=== PATIENT | female | born 1960 | race Caucasian/White ===

== ENCOUNTER 2018-12-06 14:39 | Outpatient (REF) | payer BC, SELFPAY ==
[2018-12-06 21:06] LABS: Calculated LDL 157 mg/dL; Cholesterol 262 mg/dL (50-200); HDL Cholesterol 80 mg/dL (40-60); Triglyceride 128 mg/dL (30-150)
[2018-12-08 09:56] LABS: Hepatitis C Ab w Rflx HCV PCR Negative (NEGAT)
== END 2018-12-06 14:59 ==
LOC: NCHCN 14:39
PROVIDERS: PCP Nurse Practitioner; Visit Provider Nurse Practitioner Family
DX: Z00.00 Encounter for general adult medical examination without abnormal findings (principal); R51 Headache; J45.20 Mild intermittent asthma, uncomplicated; M54.5 Low back pain; M19.90 Unspecified osteoarthritis, unspecified site; F32.9 Major depressive disorder, single episode, unspecified; J30.9 Allergic rhinitis, unspecified
CPT/HCPCS: 80061; 83721; 86803

== ENCOUNTER 2018-12-22 00:37 | Outpatient (CLI) | payer BC, SELFPAY ==
--- NOTE | 2018-12-22 12:54 | DI.MAMMO_ITS ---
SYMPTOM/DIAGNOSIS: SCREENING, Z12.39 MAMMOGRAMS: Mammograms were interpreted according to the usual protocol including computer analysis with CAD system, tomosynthesis and C view imaging. Comparison is made with prior examinations. Breast density, Category B. No suspicious masses or microcalcifications are seen. There is no definite evidence of malignancy. IMPRESSION: Negative mammogram. Routine screening is recommended. Category 1. MQSA ASSESSMENT OF FINDINGS: Negative. Category 1. Patient will receive a letter notifying them of these results. BI-RADS category B. There are scattered areas of fibroglandular density.
== END 2018-12-22 00:57 ==
PROVIDERS: PCP Nurse Practitioner; Visit Provider Nurse Practitioner Family
DX: Z12.31 Encounter for screening mammogram for malignant neoplasm of breast (principal)
CPT/HCPCS: 77063; 77067

== ENCOUNTER 2019-11-17 10:28 | Outpatient (CLI) | payer BC, SELFPAY ==
[2019-11-21 23:14] LABS: SARS-CoV-2 RNA Undetected (Undetected); SARS-CoV-2 Specimen Source Nasopharynx
== END 2019-11-17 10:48 ==
PROVIDERS: PCP Nurse Practitioner; Visit Provider Nurse Practitioner Family
DX: Z11.59 Encounter for screening for other viral diseases (principal)
CPT/HCPCS: U0003

== ENCOUNTER 2020-12-13 10:21 | Outpatient (REF) | payer BC, SELFPAY ==
[2020-12-13 14:40] LABS: HCT 39.3 % (36.0-46.0); HGB 13.6 g/dL (11.2-15.7); MCH 32.1 pg (27.0-33.0); MCHC 34.6 % (32.0-36.0); MCV 92.7 fL (80-95); MPV 11.2 fL (8.0-11.0); Platelet Count 115 10^3/uL (130-400); RBC 4.24 10^6/uL (3.93-5.22); RDW 12.1 % (11.7-14.6); RDW-SD 41.2 fL; WBC 4.41 10^3/uL (4.4-10.8)
[2020-12-14 12:46] LABS: COVID-19 RT-PCR UVMMC Result Negative (Negative)
[2020-12-16 12:50] LABS: Lyme Ab w Rflx to Lyme Confirm Equivocal (Negative)
[2020-12-16 13:37] LABS: Lyme IgG Ab Negative (Negative); Lyme IgM Ab Positive (Negative)
[2020-12-17 00:45] LABS: Anaplasma phagocytophilum Negative (Negative); B. miyamotoi PCR Negative (Negative); Babesia divergens/MO-1 Negative (Negative); Babesia duncani Negative (Negative); Babesia microti Negative (Negative); Ehrlichia chaffeensis Negative (Negative); Ehrlichia ewingii/canis Negative (Negative); Ehrlichia muris eauclairensis Negative (Negative)
== END 2020-12-13 10:22 | disposition home or self-care (01) ==
LOC: NCHCN 10:21
PROVIDERS: PCP Nurse Practitioner; Visit Provider Nurse Practitioner Family
DX: B34.9 Viral infection, unspecified (principal); Z20.822 Contact with and (suspected) exposure to COVID-19
CPT/HCPCS: 85027; 86617; 87798; U0003; 86618

== ENCOUNTER 2020-12-14 06:58 | Inpatient (IN) | payer BC, SELFPAY ==
[2020-12-14] VITALS (55 sets, daily range): BP systolic 99–128; BP diastolic 52–74; PULSE 69–101; RESP 15–23; TEMP 36.2–38; O2SAT 95–100
--- NOTE | 2020-12-14 07:04 | ED.GENADUL_ITS ---
Discharge Plan Disposition Patient Disposition: [facility] INPATIENT Condition: Stable Discharge Details Clinical Impression: Non-ST elevation [place] (NSTEMI), Transaminitis, Malaise, Abdominal pain, Mass of right ovary Primary Care Provider: Esther Ambriz ED Provider: Jefe Edwards Home Meds and New Rx's Prescriptions: No Action multivitamin Tablet 1 tab PO QAM RF: 0 ondansetron HCl [Zofran] 4 mg tablet 4 mg PO TID PRNRF: 0 sertraline 100 mg tablet 100 mg PO DAILY RF: 0 Medical Decision Making <Aramis Laboy MD - Last Filed: 12/14/20 07:29> Patient presenting with 5-day history of headache, vomiting, malaise, low-grade fevers. She is fully vaccinated. She has already had 1 - Covid test. She has a repeat Covid as well as tick panel pending. Not tolerating fluids and Zofran prescribed yesterday not helping. Abdomen is benign. Will establish IV give fluids as well as Compazine. She had CBC drawn yesterday but no other labs so we will do abdominal labs including lipase. <Jefe Edwards DO - Last Filed: 12/14/20 11:47> Case was signed out to me by my colleague Dr. Aramis Laboy. Please refer to his HPI, physical exam assessment and plan. At time of signout we are pending laboratory work-up. Labs returned and the patient's troponin is noted to be elevated. EKG was immediately ordered, EKG shows no evidence of STEMI. There is an inverted T wave in lead III and aVF. Laboratory work-up otherwise shows a low sodium, mild transaminitis, lipase normal. No white count, platelets are slightly low at 122, lymphocyte count is low. Bedside portable echo was performed and shows no evidence of pericardial effusion, no evidence of significant cardiac dysfunction, or overt signs of severe heart failure. Patient has been under tremendous amount of stress however symptoms at this time appear unlikely to be Takotsubo's cardiomyopathy. However in conjunction with the transaminitis I do feel that potential mild myocarditis from a tickborne illness is a potential component/cause. The inverted T waves in lead III and aVF, and her prolonged symptoms, on repeat exam she does have mild tenderness in the left lower quadrant. We will get a CTA/PE study of the chest as well as CT abdomen for evaluation of diverticulitis. We will continue to monitor closely and reassess. Tick studies were performed on an outpatient basis already and those results are not back yet. Be trusted that 1 11:[address] PE study negative for acute process, CT abdomen shows moderate free fluid in the pelvis, diffuse mesenteric edema, however repeat exam does not show clinical evidence at this time of an acute ischemic gut clinically. Abdominal tenderness is notably resolved. There is also a 3.2 cm right adnexal mass, which could be a pedunculated fibroid or an ovarian lesion. No ultrasound available at this time. This is the opposite side to where the pains initially was. Patient remained stable. Repeat exam shows no evidence of meningeal signs, patient demonstrates no clinical evidence of meningitis at this time. No neck tenderness or stiffness. Headache resolved at this time. We did contact [facility] and I discussed the case with . At this time no beds are available at [facility], however after discussion of the case, labs, imaging, and EKG findings, it is felt that this is more likely to be a viral or tickborne etiology rather than ischemic etiology. Aspirin given. Recommend holding on heparin unless troponin notably increases or elevates cardiology recommends.. echo when available, as well as formal ultrasound of the ovaries for further assessment. Discussed the case with the hospitalist Dr. Ruiz, he agrees with the assessment and plan. We will start doxycycline at this time anticipating tickborne etiology. I will place bridging orders on his behalf. I have ex tensively reviewed the treatment plan with the patient. I have addressed all patient concerns at this time. I have also discussed the plan with the admitting physician and they agree with the current assessment and plan and have agreed to assume responsibility for the patient. All parties demonstrate verbal understanding and agreement with our assessment and plan at this time. The documentation in this chart was dictated using [employer] dictation software. Please excuse any dictation errors. EKG 8: 24 Rate 67, sinus rhythm, no significant ST elevation or depression. Inverted T waves noted in lead III and aVF. No large Q waves. No evidence of STEMI. No prior EKG for comparison. FINDINGS: Pulmonary arteries: Normal. No pulmonary emboli. Aorta: Unremarkable. No aortic aneurysm. No aortic dissection. Lungs: Dependent atelectasis. Pleural spaces: Unremarkable. No pneumothorax. No pleural effusion. Heart: Unremarkable. No cardiomegaly. No pericardial effusion. Lymph nodes: Unremarkable. No enlarged lymph nodes. Bones/joints: Minimal degenerative arthritis in the thoracic spine. Soft tissues: Unremarkable. IMPRESSION: No acute findings. FINDINGS: Aorta: No aortic aneurysm. No aortic dissection. Celiac trunk and mesenteric arteries: No occlusion or significant stenosis. Renal arteries: No occlusion or significant stenosis. Liver: Mild periportal edema. Gallbladder and bile ducts: Normal. No calcified stones. No ductal dilation. Pancreas: Normal. No ductal dilation. Spleen: Normal. No splenomegaly. Adrenals: Normal. No mass. Kidneys and ureters: Normal. No hydronephrosis. Stomach and bowel: Unremarkable. No obstruction. No mucosal thickening. Lymph nodes: Unremarkable. No enlarged lymph nodes. Intraperitoneal space: Moderate amount of free fluid in the pelvis. Mild diffuse mesenteric edema. Reproductive: Solid-appearing peripherally calcified rounded 3.2 cm right adnexal mass best seen on axial series 13, image 68. This could be an ovarian lesion or a pedunculated fibroid. Ultrasound recommended. Bones/joints: Degenerative arthritis in the spine and pelvis. Old fracture right sacrum and left superior and inferior pubic rami. Soft tissues: Unremarkable. Other findings: Images are degraded by motion. IMPRESSION: 1. Moderate amount of free fluid in the pelvis and diffuse mesenteric edema. 2. 3.2 cm right adnexal mass could be a pedunculated fibroid or an ovarian l esion. Ultrasound recommended. 3. Mild periportal edema Thank you for allowing us to participate in the care of your patient. Dictated and Authenticated by: Fela Loco MD 12/14/2020 10:39 AM Eastern Time ([place] & [place]) HPI <Aramis Laboy MD - Last Filed: 12/14/20 07:29> General Mode of arrival: ambulatory . Date/Time Provider Initiated Documentation: 12/14/20 07:04 . Limitations to Documentation: no limitations . Information obtained by: patient and RN notes reviewed . HPI Narrative: Patient presents to the ED with persistent nausea and vomiting. Patient started with symptoms 5 days ago. She has headache, vomiting, intermittent low-grade fevers, abdominal discomfort, fatigue. She had one Covid test done this week which is negative. She was seen by primary care yesterday and had a repeat Covid test as well as check panel sent. She was prescribed Zofran but has vomited as soon as she takes it. Continues to have dry heaves. She reports decreased urine output. She denies rash or joint pain. She denies diarrhea. She has upper abdominal discomfort and had some pressure in the epigastric region but denies having chest pain, shortness of breath. Presents to ED due to persistent vomiting and inability to keep anything down. Related Data Home Medications Medication Instructions Recorded Confirmed multivitamin 1 tab PO QAM 12/14/20 12/14/20 ondansetron HCl [Zofran] 4 mg PO TID PRN 12/14/20 12/14/20 sertraline 100 mg PO DAILY 12/14/20 12/14/20 Allergies Allergy/AdvReac Type Severity Reaction Status Date / Time scopolamine AdvReac Skin Rash Unverified 12/14/20 07:11 Review of Systems <Aramis Laboy MD - Last Filed: 12/14/20 07:29> Narrative: 02/06 Review of Systems completed and is negative except as stated above in HPI (Systems reviewed: Const, Eyes, ENT, Resp, CV, GI, , MSK, Skin, Neuro) PFSH <Aramis Laboy MD - Last Filed: 12/14/20 07:29> Medical History No significant past medical history Surgical History No significant past surgical history Social History Smoking/Tobacco Use Status: Never Smoking risk assessment performed?: Yes Alcohol Intake: current Alcohol Intake frequency: 0-2 drinks per day Alcohol type: beer Drug use: Never Substance use type: does not use Exam <Aramis Laboy MD - Last Filed: 12/14/20 07:29> Narrative Exam Narrative: Const: WDWN female in NAD. HEENT: NC/AT. Normal facial exam. Eyes: Normal conjunctiva and sclera. Neck: Supple. Trachea midline. Lungs: Normal respiratory effort. Lungs are clear. Cor: RRR without murmur/gallop. Good radial pulses. GI: Soft. NT/ND. No guarding or rebound. Neuro: A+O x 3. Normal speech, mentation, gait. Cranial nerves II - XII grossly intact. No gross motor or sensory deficit. Ext: No C/C/E. Skin: Warm and dry without rash. Sign Out <Aramis Laboy MD - Last Filed: 12/14/20 07:29> Sign Out Data: Sign Out Comment: Patient turned over to oncoming physician Dr. Edwards. Laboratory studies pending. Reevaluate after medications and fluids. Last updated by Aramis Laboy MD at 12/14/20 07:59
[2020-12-14] MEDS: Prochlorperazine 10 MG/2 ML VIAL IVP (07:38)
[2020-12-14] MEDS: Lactated Ringers 2,000 ML 1000 ML IV (07:38)
[2020-12-14 07:54] LABS: Abs Immature Grans 0.03 10^3/uL (0.0-0.06); Absolute Basophil Count 0.01 10^3/uL (0.0-0.2); Absolute Monocyte Count 0.42 10^3/uL (0.1-0.8); Absolute Neutrophil Count 4.91 10^3/uL (1.2-6.7); Basophils % 0.2; HGB 13.4 g/dL (11.2-15.7); Immature Grans % 0.5; Lymphocytes % 6.9; MCH 32.1 pg (27.0-33.0); MCHC 35.3 % (32.0-36.0); MCV 90.9 fL (80-95); MPV 10.3 fL (8.0-11.0); Monocytes % 7.3; Neutrophils % 85.1; Nucleated RBC 0 %; Platelet Count 122 10^3/uL (130-400); RBC 4.18 10^6/uL (3.93-5.22); RDW 11.9 % (11.7-14.6); RDW-SD 39.8 fL; WBC 5.77 10^3/uL (4.4-10.8)
[2020-12-14 08:10] LABS: ALT 300 U/L (14-59); AST 148 U/L (15-37); Albumin 3.2 g/dL (3.4-5.0); Alkaline Phosphatase 288 U/L (46-116); Anion Gap 8.1 mmol/L (3-11); BUN 5 mg/dL (7-18); Bilirubin, Total 0.9 mg/dL (0.2-1.0); CO2 26.9 mmol/L (21.0-32.0); CREATININE 0.5 mg/dL (0.55-1.02); Calcium 8.3 mg/dL (8.5-10.1); Chloride 89 mmol/L (98-107); Glucose 124 mg/dL (74-106); Lipase 60 U/L (73-393); Magnesium 1.7 mg/dL (1.8-2.4); Potassium 3.6 mmol/L (3.5-5.1); Total Protein 6.7 g/dL (6.4-8.2)
[2020-12-14 08:15] LABS: Sodium 124 mmol/L (136-145)
--- NOTE | 2020-12-14 08:15 | RT.EKG_ITS ---
APPROVED REPORT Exam: Resting ECG Reason for Exam: nausea Patient Location: E HR:67 bpm ECG Measurements Heart Rate 67 AXIS [place] 141 P 63 QRSd 82 QRS 37 QT 377 T -15 QTc 398 Conclusion Sinus rhythm...normal P axis, V-rate 60- 99 Physician: Rate 67, sinus rhythm, no significant ST elevation or depression. Inverted T waves noted in lead III and aVF. No large Q waves. No evidence of STEMI. No prior EKG for comparison.
--- NOTE | 2020-12-14 09:20 | DI.CT_ITS ---
Exam(s) CT CHEST PE ABD PELVIS W EXAM: CT CHEST PE ABD PELVIS W CLINICAL HISTORY: chest pain, nstemi. TECHNIQUE: Imaging Protocol: Axial CT angiography was performed with multi-slice acquisition and m ulti-planar and/or 3D reconstructions. CONTRAST MATERIAL: Intravenous: Omnipaque 350 Contrast volume:100 ml Oral: None COMPARISON: No exams were available for comparison FINDINGS: CHEST: PULMONARY ARTERIES: There are no intra-arterial filling defects to suggest the presence of acute pulm onary emboli. LUNGS: Mild mosaic-type pattern both posterior lungs consistent with some air trapping. No air bronc hograms. No pleural effusions.. No pneumothorax MEDIASTINUM: There is no hilar nor mediastinal adenopathy. Partially visualized thyroid unremarkable CARDIAC: Heart size is normal. There is no pericardial effusion. There is no significant shift of t he interventricular septum.Caliber of the thoracic aorta is within normal limits. OSSEOUS: No significant osseous lesions.. ABDOMEN: There is some motion artifact There is no ascites in the upper abdomen but there does appear to be some mild mesenteric edema. The re is moderate amount of free fluid in the dependent aspect of the pelvis. LIVER: There are no focal hepatic lesions nor dilatation of intrahepatic ducts. Intrahepatic peripor aracely edema noted GALLBLADDER/BILIARY: No obvious gallstones. Fluid density around the gallbladder is noted but this i s probably artifact given the amount of movement here. PANCREAS: No evidence of pancreatic mass nor dilatation of the pancreatic duct. SPLEEN: Spleen is not enlarged. There are no intrasplenic lesions. Splenic and portal veins are valdes nt. ADRENALS: There are no significant adrenal masses. KIDNEYS:No cysts evident. No calculi nor hydronephrosis. No solid renal masses. ABDOMINAL AORTA: Abdominal aorta is not enlarged. LYMPH NODES: There is no retroperitoneal or para-aortic adenopathy. ABDOMINAL WALL/GI: No evidence of significant anterior abdominal wall hernia. No bowel obstruction. PELVIS: LYMPH NODES: There is no intrapelvic nor inguinal adenopathy. GI: Appendix is difficult to identify is a separate structure.No obvious swollen appendix evident.. No obvious sigmoid diverticuli. URINARY BLADDER: No calculi nor masses evident REPRODUCTIVE: There is a partially calcified density right of uterus which is either a fibroid or ova tiffanie abnormality. There is a moderate amount of fluid in the cul-de-sac and both adnexal regions. T his fluid is uniform density with no evidence of clot therein. OSSEOUS: Nonacute left pelvic fractures involving the pubic rami. Subtle sclerosis in the right nelida c bone noted advanced disc space narrowing L5-S1 level. Vacuum phenomenon seen within both this disc space and the non diminished L4-5 disc space. IMPRESSION: 1. No evidence of acute pulmonary emboli nor pulmonary infarction. 2. Mild mosaic pattern noted in both lower lung becker, probably related to air trapping. No pleural effusions nor intrathoracic adenopathy. Appropriate follow-up of this finding recommended. 3. Mesenteric edema and periportal edema. 4. Partially calcified mass in the right adnexa measuring approximately 3 x 3 millimeters. This may be uterine fibroid versus possible right ovarian pathology. Significant moderate amount of free flui d in the dependent aspect of the pelvis. Recommend follow-up ultrasound examinations. RADIATION DOSE DELIVERED: Total DLP DATA REPOSITORY: All CT scans at this facility are submitted to the National Radiology Data Registry (NRDR) Dose Index Registry (DIR) with the [employer] (ACR). RADIATION OPTIMIZATION: All CT scans at this facility use at least one of these dose optimization te chniques: automated exposure control; mA and/or kV adjustment per patient size (includes targeted exa ms where dose is matched to clinical indication); or iterative reconstruction.
[2020-12-14] MEDS: Normal Saline - Diluent 50 ML VIAL IV (10:01)
[2020-12-14] MEDS: Omnipaque 350 MG/ML 100 ML BTL IJ (10:01)
[2020-12-14] MEDS: Normal Saline Flush 10 ML SYR IVP (10:01)
[2020-12-14 10:03] LABS: Troponin I 0.12 ng/mL (<0.06)
[2020-12-14] MEDS: Aspirin 81 MG CHEW 324 MG CH (10:11)
--- NOTE | 2020-12-14 10:39 | DI.VRAD_ITS ---
PROCEDURE INFORMATION: Exam: CTA Chest With Contrast Exam date and time: 12/14/2020 9:43 AM Age: 60 years old Clinical indication: Other: Chest pain, nstemi, ; other: Vomiting, llq pain TECHNIQUE: Imaging protocol: Computed tomographic angiography of the chest with contrast. 3D rendering (Not supervised by radiologist): MIP and/or 3D reconstructed images were created by the technologist. Contrast material: OMNIPAQUE 350; Contrast volume: 100 ml; Contrast route: INTRAVENOUS (IV); COMPARISON: No relevant prior studies available. FINDINGS: Pulmonary arteries: Normal. No pulmonary emboli. Aorta: Unremarkable. No aortic aneurysm. No aortic dissection. Lungs: Dependent atelectasis. Pleural spaces: Unremarkable. No pneumothorax. No pleural effusion. Heart: Unremarkable. No cardiomegaly. No pericardial effusion. Lymph nodes: Unremarkable. No enlarged lymph nodes. Bones/joints: Minimal degenerative arthritis in the thoracic spine. Soft tissues: Unremarkable. IMPRESSION: No acute findings. PROCEDURE INFORMATION: Exam: CT Angiography Abdomen With Contrast Exam date and time: 12/14/2020 9:43 AM Age: 60 years old Clinical indication: Other: Chest pain, nstemi, ; other: Vomiting, llq pain TECHNIQUE: Imaging protocol: Computed tomographic angiography images of the abdomen with intravenous contrast material. 3D rendering (Not supervised by radiologist): MIP and/or 3D reconstructed images were created by the technologist. Contrast material: OMNIPAQUE 350; Contrast volume: 100 ml; Contrast route: INTRAVENOUS (IV); COMPARISON: No relevant prior studies available. FINDINGS: Aorta: No aortic aneurysm. No aortic dissection. Celiac trunk and mesenteric arteries: No occlusion or significant stenosis. Renal arteries: No occlusion or significant stenosis. Liver: Mild periportal edema. Gallbladder and bile ducts: Normal. No calcified stones. No ductal dilation. Pancreas: Normal. No ductal dilation. Spleen: Normal. No splenomegaly. Adrenals: Normal. No mass. Kidneys and ureters: Normal. No hydronephrosis. Stomach and bowel: Unremarkable. No obstruction. No mucosal thickening. Lymph nodes: Unremarkable. No enlarged lymph nodes. Intraperitoneal space: Moderate amount of free fluid in the pelvis. Mild diffuse mesenteric edema. Reproductive: Solid-appearing peripherally calcified rounded 3.2 cm right adnexal mass best seen on axial series 13, image 68. This could be an ovarian lesion or a pedunculated fibroid. Ultrasound recommended. Bones/joints: Degenerative arthritis in the spine and pelvis. Old fracture right sacrum and left superior and inferior pubic rami. Soft tissues: Unremarkable. Other findings: Images are degraded by motion. IMPRESSION: 1. Moderate amount of free fluid in the pelvis and diffuse mesenteric edema. 2. 3.2 cm right adnexal mass could be a pedunculated fibroid or an ovarian lesion. Ultrasound recommended. 3. Mild periportal edema Dictated and Authenticated by: Fela Loco MD. Ordering:LYNNE Mayberry MD
[2020-12-14 11:40] LABS: Source Nasal/Nares
[2020-12-14 11:54] LABS: Creatine Kinase 46 U/L (26-192)
[2020-12-14] MEDS: DOXYCYCLINE 100 MG in Normal Saline 100 ML IVPB (11:55)
[2020-12-14 12:36] LABS: COVID-19 PCR Negative (Negative)
--- NOTE | 2020-12-14 13:30 | HPE_ITS ---
Date of service: 12/14/20 Time of Service: 13:31 Assessment and Plan Assessment and plan (1) Non-ST elevation [place] (NSTEMI): Status: Acute Assessment and plan: Concerning more for myocarditis (viral or tickborne) than ischemia. Tick panel ordered. Doxycycline initiated for presumptive treatment. PRN ibuprofen for KENNEDY. Trend troponin. Echocardiogram on Wednesday. (2) Transaminitis: Status: Acute Assessment and plan: CT showed no biliary abnormalities other than periportal edema. Monitor. (3) Malaise: Status: Acute Assessment and plan: Further evidence of a likely viral or tick-born is [place]. (4) Mass of right ovary: Status: Acute Assessment and plan: US ordered. No pain in the RLQ. History of Present Illness History of Present Illness Chief Complaint: Nausea and Vomitting Narrative: This is a 60 yo female with no significant PMH. She presented to the ED with a 5 day h/o persistent N/V, KENNEDY, low-grade fevers, abd discomfort and generalized malaise/fatigue. She saw her PCP the day prior to admission and had a Covid test that was negative. She had a previous Covid test within the last week that was negative. She has noted decreased urine output ascribed to the inability to keep adequate fluids down. No diarrhea, joint pain, CP, palpitations, SOA. CBC was normal. Na low at 124, K 3.6, creatinine 0.5, Mg 1.7, normal bilirubin, AST 148, ALT 300, AP 288. Troponin 0.10> 0.12 > 0.17. Lipase 60. EKG w/o ST changes. Inverted T waves in III and aVF. CT chest/abd/pelvis. No acute chest findings. + moderate amt of free fluid in the pelvis and diffuse mesenteric edema. 3.2 right adnexal mass; described as a pedunculated fibroid vs ovarian lesion. US ordered and pending. Mild periportal edema. Cardiology, Dr Salas was spoken to by the ED physician. [place] this is likely a viral or tickborne issue rather than ischemia. Aspirin given. No heparin unless troponin notably increases. Echo and pelvic US ordered. Review of Systems All systems reviewed & are unremarkable except as noted in HPI and below PFSH Medical History No significant past medical history Surgical History No significant past surgical history Social History Smoking/Tobacco Use Status: Never Smoking risk assessment performed?: Yes Alcohol Intake: current Alcohol Intake frequency: 0-2 drinks per day Alcohol type: beer Drug use: Never Substance use type: does not use Meds Allergies and Home Medications Allergies Allergy/AdvReac Type Severity Reaction Status Date / Time scopolamine AdvReac Skin Rash Unverified 12/14/20 07:11 Home Medications Medication Instructions Recorded Confirmed Type multivitamin 1 tab PO QAM 12/14/20 12/14/20 History ondansetron HCl [Zofran] 4 mg PO TID PRN 12/14/20 12/14/20 History sertraline 100 mg PO DAILY 12/14/20 12/14/20 History Exam Const General: cooperative and no acute distress Nutritional Appearance: average body habitus Orientation: alert and oriented x3 HENMT Head: normocephalic and atraumatic Eyes Sclera: sclerae normal Pupils: PERRL Neck Neck: full ROM and no JVD Resp Effort & Inspection: normal respiratory effort Auscultation: clear to auscultation bilaterally Cardio Rate: regular rate Rhythm: regular rhythm Heart Sounds: S1 normal, S2 normal and no murmurs GI Palpation: soft and nontender Skin General skin exam: no rashes or lesions noted Neuro General: moves all extremities Cranial Nerves: facial strength normal Cognition: normal cognition Speech: speech normal Extrem General: no pedal edema and no calf tenderness Psych Appearance: grossly normal Mental Status: mental status grossly normal Speech and Movement: speech and movement normal Mood: congruent mood Affect: normal affect Results Labs Result diagrams: 12/14/20 07:30 12/14/20 07:30 Labs: Laboratory Results - last 24 hr 12/14/20 12/14/20 12/14/20 07:30 07:30 07:30 WBC 5.77 D RBC 4.18 Hgb 13.4 Hct 38.0 MCV 90.9 MCH 32.1 MCHC 35.3 RDW 11.9 Plt Count 122 L MPV 10.3 Immature Gran % 0.5 Neutrophils % 85.1 Lymphocytes % 6.9 Monocytes % 7.3 Eosinophils % 0.0 Basophils % 0.2 Nucleated RBC % 0 Absolute Neutrophils 4.91 Absolute Lymphocytes 0.40 L Absolute Monocytes 0.42 Absolute Eosinophils 0.00 Absolute Basophils 0.01 Sodium 124 L Potassium 3.6 Chloride 89 L Carbon Dioxide 26.9 Anion Gap 8.1 BUN 5 L Creatinine 0.5 L Estimated GFR/1.73 m2 >= 60.00 Glucose 124 H Calcium 8.3 L Magnesium 1.7 L Total Bilirubin 0.9 AST 148 H ALT 300 H Alkaline Phosphatase 288 H Creatine Kinase 46 Troponin I 0.10 H* Total Protein 6.7 Albumin 3.2 L Lipase 60 COVID-19 Source SARS-CoV-2 (PCR) 12/14/20 12/14/20 09:30 11:35 WBC RBC Hgb Hct MCV MCH MCHC RDW Plt Count MPV Immature Gran % Neutrophils % Lymphocytes % Monocytes % Eosinophils % Basophils % Nucleated RBC % Absolute Neutrophils Absolute Lymphocytes Absolute Monocytes Absolute Eosinophils Absolute Basophils Sodium Potassium Chloride Carbon Dioxide Anion Gap BUN Creatinine Estimated GFR/1.73 m2 Glucose Calcium Magnesium Total Bilirubin AST ALT Alkaline Phosphatase Creatine Kinase Troponin I 0.12 H* Total Protein Albumin Lipase COVID-19 Source Nasal/Nares SARS-CoV-2 (PCR) Negative Last Vital Signs Temp 36.2 C L 12/14/20 08:08 Pulse 81 12/14/20 12:31 Resp 22 12/14/20 12:31 BP 110/60 12/14/20 12:31 Pulse Ox 98 12/14/20 12:31
[2020-12-14] MEDS: SODIUM CHLORIDE 0.45% 1,000 ML 75 ML IV (13:50)
[2020-12-14] MEDS: Acetaminophen 325 MG TAB 650 MG PO (14:02)
[2020-12-14] MEDS: MAGNESIUM SULFATE 2 GM/50 ML BAG IVPB (14:03)
[2020-12-14] MEDS: Heparin 5,000 UNITS/ML VIAL 5000 UNITS SC ×2 (14:03→21:36)
[2020-12-14 14:34] LABS: Troponin I 0.17 ng/mL (<0.06)
[2020-12-14] MEDS: Ibuprofen 600 MG TAB PO (17:10)
[2020-12-14 20:22] LABS: Troponin I 0.22 ng/mL (<0.06)
[2020-12-15] VITALS (9 sets, daily range): BP systolic 98–117; BP diastolic 59–75; PULSE 68–94; RESP 14–18; TEMP 36–37.8; O2SAT 95–98
[2020-12-15] MEDS: Ibuprofen 600 MG TAB PO ×4 (05:11→23:33)
[2020-12-15] MEDS: SODIUM CHLORIDE 0.45% 1,000 ML 75 ML IV ×2 (05:11→17:54)
[2020-12-15] MEDS: Heparin 5,000 UNITS/ML VIAL 5000 UNITS SC ×3 (05:12→21:54)
[2020-12-15 07:02] LABS: Abs Immature Grans 0.03 10^3/uL (0.0-0.06); Absolute Basophil Count 0.02 10^3/uL (0.0-0.2); Absolute Monocyte Count 0.38 10^3/uL (0.1-0.8); Basophils % 0.2; HCT 34.6 % (36.0-46.0); HGB 12.2 g/dL (11.2-15.7); Immature Grans % 0.3; Lymphocytes % 6.9; MCH 31.8 pg (27.0-33.0); MCHC 35.3 % (32.0-36.0); MCV 90.1 fL (80-95); MPV 10.7 fL (8.0-11.0); Monocytes % 4.4; Neutrophils % 88.2; Nucleated RBC 0 %; Platelet Count 142 10^3/uL (130-400); RBC 3.84 10^6/uL (3.93-5.22); RDW 12.2 % (11.7-14.6); RDW-SD 40.6 fL; WBC 8.65 10^3/uL (4.4-10.8)
[2020-12-15 07:07] LABS: Absolute Neutrophil Count 7.63 10^3/uL (1.2-6.7)
[2020-12-15 07:18] LABS: ALT 327 U/L (14-59); AST 223 U/L (15-37); Albumin 2.7 g/dL (3.4-5.0); Alkaline Phosphatase 262 U/L (46-116); Anion Gap 8.9 mmol/L (3-11); BUN 5 mg/dL (7-18); Bilirubin, Total 0.9 mg/dL (0.2-1.0); CO2 25.1 mmol/L (21.0-32.0); CREATININE 0.5 mg/dL (0.55-1.02); Calcium 7.9 mg/dL (8.5-10.1); Chloride 94 mmol/L (98-107); Glucose 109 mg/dL (74-106); Potassium 3.5 mmol/L (3.5-5.1); Sodium 128 mmol/L (136-145); Total Protein 5.9 g/dL (6.4-8.2)
[2020-12-15 07:20] LABS: Troponin I 0.14 ng/mL (<0.06)
[2020-12-15] MEDS: Normal Saline Flush 10 ML SYR IVP ×2 (08:30→15:32)
[2020-12-15] MEDS: Aspirin 325 MG TAB PO (08:30)
[2020-12-15] MEDS: Sertraline 50 MG TAB 100 MG PO (08:30)
[2020-12-15] MEDS: Mylanta Suspension 30 ML CUP PO ×3 (14:22→22:04)
--- NOTE | 2020-12-15 15:15 | W.PM.PROGNOT ---
Date of Service Date of service: 12/15/20 Time of Service: 15:15 Assessment and Plan Assessment and plan (1) Non-ST elevation PA (NSTEMI): Status: Acute Assessment and plan: Concerning more for myocarditis (viral or tickborne) than ischemia. Tick panel ordered and pending. Doxycycline initiated for presumptive treatment. PRN ibuprofen for KENNEDY. Trend troponin. Peaked at 0.22. Now 0.14. Echocardiogram on Wednesday. (2) Transaminitis: Status: Acute Assessment and plan: CT showed no biliary abnormalities other than periportal edema. AST and ALT modestly higher than yesterday. No RUQ pain/tenderness. Monitor. (3) Malaise: Status: Acute Assessment and plan: Further evidence of a likely viral or tick-born issue. Improving. (4) Mass of right ovary: Status: Acute Assessment and plan: US ordered. No pain in the RLQ. Subjective Subjective Patient reports: no new complaints, feels better, tolerating a regular diet, nausea, vomiting (dry heave x 1 this AM.) and afebrile; denies shortness of breath Interval history since last seen: KENNEDY resolved. Exam Const General: cooperative and no acute distress Nutritional Appearance: average body habitus Orientation: alert and oriented x3 HENMT Head: normocephalic and atraumatic Eyes Sclera: sclerae normal Pupils: PERRL Neck Neck: full ROM and no JVD Resp Effort & Inspection: normal respiratory effort Auscultation: clear to auscultation bilaterally Cardio Rate: regular rate Rhythm: regular rhythm Heart Sounds: S1 normal, S2 normal and no murmurs GI Palpation: soft and nontender Skin General skin exam: no rashes or lesions noted Neuro General: moves all extremities Cranial Nerves: facial strength normal Cognition: normal cognition Speech: speech normal Extrem General: no pedal edema and no calf tenderness Psych Appearance: grossly normal Mental Status: mental status grossly normal Speech and Movement: speech and movement normal Mood: congruent mood Affect: normal affect Objective Last Vital Signs Temp 36.0 C L 12/15/20 13:12 Pulse 77 12/15/20 13:12 Resp 16 12/15/20 13:12 BP 102/64 12/15/20 13:12 Pulse Ox 97 12/15/20 13:12 Laboratory Results - last 24 hr 12/14/20 12/15/20 12/15/20 20:00 06:28 06:28 WBC 8.65 D RBC 3.84 L Hgb 12.2 Hct 34.6 L MCV 90.1 MCH 31.8 MCHC 35.3 RDW 12.2 Plt Count 142 MPV 10.7 Immature Gran % 0.3 Neutrophils % 88.2 Lymphocytes % 6.9 Monocytes % 4.4 Eosinophils % 0.0 Basophils % 0.2 Nucleated RBC % 0 Absolute Neutrophils 7.63 H Absolute Lymphocytes 0.60 L Absolute Monocytes 0.38 Absolute Eosinophils 0.00 Absolute Basophils 0.02 Sodium 128 L Potassium 3.5 Chloride 94 L Carbon Dioxide 25.1 Anion Gap 8.9 BUN 5 L Creatinine 0.5 L Estimated GFR/1.73 m2 >= 60.00 Glucose 109 H Calcium 7.9 L Magnesium 2.0 Total Bilirubin 0.9 AST 223 H ALT 327 H Alkaline Phosphatase 262 H Troponin I 0.22 H* 0.14 H* Total Protein 5.9 L Albumin 2.7 L
[2020-12-15] MEDS: Ondansetron 4 MG/2 ML VIAL IVP (15:32)
--- NOTE | 2020-12-16 | DI.US_ITS ---
APPROVED REPORT EXAM: Comprehensive 2D, Doppler, and color-flow Echocardiogram Patient Location: In-Patient Room/Bed: 212 Travel Cota: Franchesca Yanez RDCS (AE) Indications: NSTEMI Other Information Study Quality: Adequate Conclusion Normal left ventricular wall thickness and chamber size. Estimated ejection fraction is 55 to 60%. There are no segmental wall motion abnormalities Normal right ventricular size and systolic function Both atria are normal in size Trileaflet aortic valve with trace regurgitation The mitral valve is structurally normal. There is mild to moderate mitral regurgitation The tricuspid valve is structurally normal. There is mild tricuspid regurgitation. Estimated right ventricular systolic pressure is 26 mmHg Wall motion Left Ventricle The left ventricle is normal size. The left ventricular systolic function is normal. The left ventric ular ejection fraction is within the normal range. There is normal left ventricular wall thickness. T here is normal LV segmental wall motion. There is no ventricular septal defect visualized. LVEF is 56 %. Right Ventricle The right ventricle is normal size. The right ventricular systolic function is normal. The RVSP is 26 .0 mmHg. Atria The left atrium size is normal. The right atrium size is normal. The interatrial septum is intact wit h no evidence for an atrial septal defect. Aortic Valve The aortic valve is normal in structure. Aortic valve is trileaflet. There is no aortic valvular sten osis. Trace aortic regurgitation. Mitral Valve The mitral valve is normal in structure. No evidence of mitral valve stenosis. Mild to moderate caroline l regurgitation. Tricuspid Valve The tricuspid valve is normal in structure. There is no tricuspid valve stenosis. Mild tricuspid regu rgitation. Pulmonic Valve The pulmonary valve is normal in structure. There is no pulmonic valvular stenosis. There is no pulmo brian valvular regurgitation. Great Vessels The aortic root is normal in size. The ascending aorta is normal in size. Aortic arch is normal in ca liber. IVC is normal in size and collapses >50% with inspiration. Pericardium There is no pericardial effusion. 2D Dimensions IVSD d PLAX 1.02 cm F: 0.6-1.0 LV Vol A2C d MOD 101.2 mL LVPW d PLAX 1.05 cm F: 0.6 - 1.0 LV Vol A4C d MOD 104.5 mL LVID d PLAX 4.50 cm F: 3.8 - 5.2 LA vol/ BSA A2C s A-L 28.1 mL/m2 LVDs 3.10 cm F: 2.2 - 3.5 LA vol/ BSA A4C s A-L 31.1 mL/m2 Ao Root d 2.44 cm F: 2.7 - 3.3 LA Vol/ BSA Biplane s A-L 31.2 mL/m2 RA Area A4C 14.13 cm2 LA Area A4C s MOD 18.72 cm2 RA Vol/ BSA A4C s A-L 23.6 mL/m2 LA Area A2C s MOD 16.85 cm2 Ao Asc Diam d 3.12 cm F: 2.3 - 3.1 LV EF A4C MOD 56.1 % LV EF Teichholz 58.5 % LV EF A2C MOD 56.1 % LVEF (Gruber's) 54.68 % F: 54 - 74 LV EF Biplane MOD 54.7 % LV Volume 82.62 mL F: 46 - 106 SV 57.18 mL LV Volume Index 48.03 mL/m2 F: 29 - 61 SV Index 33.17 mL/m2 LV Vol Biplane MOD 104.6 mL FS 30.75 % M-Mode TAPSE 2.47 cm (M/F) >1.7 LV Diastology MV E' medial 0.086 (>0.07 m/s) E/A Ratio 1.4 LV E/e MED 11.65 (<14) MV E Vmax 1.00 (0.4-1.3 m/s) MV E' lateral 0.125 (>0.1 m/s) MV A Vmax 0.70 (0.4-1.3 m/s) LV E/e LAT 8.00 (<14) MV E/A Ratio 1.41 MV E/E' medial 11.66 MV E/E' lateral 8.00 Aortic Valve LVOT Area 2.86 cm2 AoV Area Vmax 2.07 cm2 LVOT Vmax 1.11 m/s AoV Area/ BSA (Vmax) 1.20 cm2/m2 LVOT Mean Hakan. 0.74 m/s KOREY Mean Hakan. 2.04 cm2 LVOT Peak Grad 4.9 mmHg KOREY Mean Hakan. Index 1.18 cm2/m2 LVOT Mean Grad 2.6 mmHg AR DT 2744 msec LVOT VTI 0.273 m AR PHT 796 msec LVOT Diam s 1.90 cm AoV Vmax 1.54 m/s Velocity Ratio 0.72 AoV Mean Hakan. 1.04 m/s AoV Peak Grad 9.4 mmHg LVOT SV 78.01 mL AoV Mean Grad 4.9 mmHg AoV VTI 0.342 m AoV Area VTI 2.28 cm2 AoV Area/ BSA (VTI) 1.32 cm/m2 Mitral Valve MV DT 193 (160-240 msec) MR Vmax 4.96 m/s MV PHT 56 msec MR VTI 1.829 m MV Area PHT 3.92 cm2 MR Peak Grad 98.5 mmHg MV VTI 0.291 m MR Mean Grad 70.2 mmHg MV VTI Annulus 0.293 m MR PISA Radius 0.56 cm MV Area VTI 2.70 (4.0-6.0 cm2) MR EROA 0.14 cm2 MR Aliasing Velocity 0.35 m/s MR PISA 1.96 cm2 Pulmonary Valve PV Vmax 0.92 (0.5-1.5 m/s) RVOT Peak Gr. 1.72 mmHg PV Peak Grad 3.4 mmHg RVOT Mean Gr. 1.00 mmHg PV Mean Grad 2.1 mmHg RVOT VTI 0.143 m PV VTI 0.216 m RVOT Vmax 0.66 m/s Tricuspid Valve TR Peak Grad 22.9 mmHg TR Vmax 2.40 m/s RA Pressure 3.00 mmHg RVSP (TR) 26.0 mmHg
[2020-12-16 01:12] VITALS: PULSE 79
[2020-12-16 03:25] VITALS: BP 118/78; PULSE 89; RESP 18; TEMP 36.3; O2SAT 97
[2020-12-16] MEDS: Heparin 5,000 UNITS/ML VIAL 5000 UNITS SC (06:06)
[2020-12-16] MEDS: SODIUM CHLORIDE 0.45% 1,000 ML 75 ML IV (06:06)
[2020-12-16 07:00] VITALS: PULSE 67
[2020-12-16 07:30] VITALS: BP 118/74; PULSE 72; RESP 14; TEMP 36.5; TEMP 36.7; O2SAT 95
[2020-12-16] MEDS: Sertraline 50 MG TAB 100 MG PO (08:36)
[2020-12-16] MEDS: Aspirin 325 MG TAB PO (08:36)
[2020-12-16] MEDS: Doxycycline Hyclate 100 MG CAP PO (09:41)
[2020-12-16 10:17] LABS: ALT 469 U/L (14-59); AST 276 U/L (15-37); Albumin 2.6 g/dL (3.4-5.0); Alkaline Phosphatase 313 U/L (46-116); Anion Gap 7.2 mmol/L (3-11); BUN 5 mg/dL (7-18); Bilirubin, Total 0.5 mg/dL (0.2-1.0); CO2 26.8 mmol/L (21.0-32.0); CREATININE 0.5 mg/dL (0.55-1.02); Calcium 7.6 mg/dL (8.5-10.1); Chloride 99 mmol/L (98-107); Glucose 155 mg/dL (74-106); Potassium 3.6 mmol/L (3.5-5.1); Sodium 133 mmol/L (136-145); Total Protein 6.2 g/dL (6.4-8.2)
--- NOTE | 2020-12-16 10:42 | DI.US_ITS ---
Exam(s) US PELVIS EXAM: US PELVIS CLINICAL HISTORY: right adenexal mass TECHNIQUE: Ultrasound of the pelvis was performed transabdominally, using the urinary bladder is an acoustic window. COMPARISON: Recent CT scan performed 12/14/2020 reviewed. FINDINGS: UTERUS: Non gravid and anteverted Measures 7.8 cm length x 4.5 cm AP x 4.9 cm wide. There is a partially calcified fibroid at the level the fundus measuring 3.2 x 3.5 x 3.1 cm. This co rresponds to what is seen on recent CT scan. Visualization of the endometrium was not possible due to the shadowing from the fibroid. CERVIX: There are no obvious nabothian cysts. Both ovaries were not able to be visualized on this study. CUL-DE-SAC: No free fluid evident. IMPRESSION: 1. There is a 3.5 x 3.2 x 3.1 cm partially calcified uterine fibroid in the right-side of the fundus. Shadowing from this prevents visualization of the endometrial canal. 2. Ovaries were not able to be identified on today's study. 3. The recently described cul-de-sac fluid seen on CT scan of 12/14/20 is not seen on today's ultrasou nd examination images. However I doubt that it is cleared from 2 days ago. DATA REPOSITORY:
[2020-12-16] MEDS: Ibuprofen 600 MG TAB PO (11:23)
--- NOTE | 2020-12-16 11:46 | INITIAL_ITS ---
- If Service Date Differs Date of service: 12/16/20 Time of Service: 11:46 Care Management Initial Assess REASON FOR HOSPITALIZATION:: NSTEMI PAST MEDICAL HISTORY/PAST SURGICAL HISTORY:: No significant PMH. PREVIOUS FUNCTIONAL STATUS/SOCIAL/FAMILY SUPPORTS:: Resides in [place] with , Paul. Independent at baseline in the community. CURRENT FUNCTIONAL STATUS:: Aimee was preparing for discharge, no concerns noted at this time. ADVANCE DIRECTIVES:: None on file at [facility]. Has patient been provided with info about the portal/API?: Yes Did the patient sign up for the portal?: No CODE STATUS:: Full Code INSURANCE COVERAGE / FINANCIAL ISSUES:: BC/BS CURRENT HOME/COMMUNITY SERVICES/EQUIPMENT:: None, currently. PRIMARY CARE PHYSICIAN:: Esther Ambriz POTENTIAL DISCHARGE NEEDS:: Follow up appointments. PATIENT/FAMILY EDUCATION NEEDS:: Review of discharge instructions, discuss Ask Me Three. ANTICIPATED BARRIERS TO DISCHARGE:: None identified at this time. TRANSPORTATION:: Via private vehicle with her , Paul. PLAN:: Aimee will complete work up for NSTEMI. She will follow up with her PCP and plan of care as prescribed and transport via private vehicle with her .
[2020-12-16] MEDS: Mylanta Suspension 30 ML CUP PO (12:40)
[2020-12-16 12:46] VITALS: BP 125/77; PULSE 73; RESP 16; TEMP 37; O2SAT 98
--- NOTE | 2020-12-16 14:12 | DSE_ITS ---
Date of service: 12/16/20 Time of Service: 14:12 DS: Diagnosis Discharge Diagnosis (1) Non-ST elevation NV (NSTEMI): Status: Acute (2) Transaminitis: Status: Acute (3) Malaise: Status: Acute (4) Mass of right ovary: Status: Acute Discharge Plan Disposition Patient Disposition: HOME Condition: Stable Discharge Details Reason For Visit: NSTEMI Admit Date/Time: 12/14/20 11:35 Admit Provider: Long Ruiz Attending Provider: Long Ruiz Primary Care Provider: Esther Ambriz Hospital Course Hospital Course: This is a 60 yo female with no significant PMH. She presented to the ED with a 5 day h/o persistent N/V, KENNEDY, low-grade fevers, abd discomfort and generalized malaise/fatigue. She saw her PCP the day prior to admission and had a Covid test that was negative. She had a previous Covid test within the last week that was negative. She has noted decreased urine output ascribed to the inability to keep adequate fluids down. No diarrhea, joint pain, CP, palpitations, SOA. CBC was normal. Na low at 124, K 3.6, creatinine 0.5, Mg 1.7, normal bilirubin, AST 148, ALT 300, AP 288. Troponin 0.10> 0.12 > 0.17. Lipase 60. EKG w/o ST changes. Inverted T waves in III and aVF. CT chest/abd/pelvis. No acute chest findings. + moderate amt of free fluid in the pelvis and diffuse mesenteric edema. 3.2 right adnexal mass; described as a pedunculated fibroid vs ovarian lesion. US ordered and pending. Mild periportal edema. Cardiology, Dr Salas was spoken to by the ED physician. [place] this is likely a viral or tickborne issue rather than ischemia. Aspirin given. No heparin unless troponin notably increases. Echo and pelvic US ordered. Lyme testing result was equivocal. Tick-born panel, otherwise, pending. Echocardiogram was normal w/o evidence of pericarditis. Normal EF. Her Troponin peaked at 0.22 then trended to 0.14. Pelvic US showed a calcified fibroid in the uterine fundus; decreased in size from previous US in 2009. Ovaries not visualized on the exam. Her LFTs remained elevated and will require outpt follow-up. Her Na improved from 124 to 133. Her overall clinical and laboratory findings indicate likely Lyme's disease with carditis. Since the Lyme testing was equivocal, repeating the test in 1 month could be pursued. She will receive a 10 day treatment of doxycycline. F/U with PCP in 1 week. Home Meds and New Rx's Prescriptions: New doxycycline hyclate 100 mg Capsule 100 mg PO Q12H Qty: 18 RF: 0 Continued multivitamin Tablet 1 tab PO QAM RF: 0 ondansetron HCl [Zofran] 4 mg tablet 4 mg PO TID PRNRF: 0 sertraline 100 mg tablet 100 mg PO DAILY RF: 0 Discharge Instructions Instructions: Lyme Disease (GEN) Activity:: Activity as Tolerated Equipment/Supplies:: No Equipment Needed Diet:: Normal Diet Discharge Orders Discharge Orders: Discharge Order (Routine); Ordered 12/16/20 Ordered By: Long Ruiz DS: Summary Time Spent with Patient providing and/or coordinating discharge services: Greater than 30 minutes Status at Discharge Functional status at discharge: independent ambulation Overall status at discharge: patient is progressing back to baseline Mental Status: mental status grossly normal Speech and Movement: speech and movement normal Mood: congruent mood Affect: normal affect Exam Const General: cooperative and no acute distress Nutritional Appearance: average body habitus Orientation: alert and oriented x3 HENMT Head: normocephalic and atraumatic Eyes Sclera: sclerae normal Pupils: PERRL Neck Neck: full ROM and no JVD Resp Effort & Inspection: normal respiratory effort Auscultation: clear to auscultation bilaterally Cardio Rate: regular rate Rhythm: regular rhythm Heart Sounds: S1 normal, S2 normal and no murmurs GI Palpation: soft and nontender Skin General skin exam: no rashes or lesions noted Neuro General: moves all extremities Cranial Nerves: facial strength normal Cognition: normal cognition Speech: speech normal Extrem General: no pedal edema and no calf tenderness Psych Appearance: grossly normal Mental Status: mental status grossly normal Speech and Movement: speech and movement normal Mood: congruent mood Affect: normal affect DS: Data Vitals/I&O Vitals and I&O: Vital Signs Temperature 37 C 12/16/20 12:46 Temperature Source Tympanic 12/16/20 12:46 Pulse 73 12/16/20 12:46 Pulse Rhythm Regular 12/16/20 07:30 Pulse 89 12/14/20 12:31 Respiratory Rate 16 12/16/20 12:46 Respiratory Effort Non-Labored 12/16/20 07:30 Respiratory Depth Normal 12/16/20 07:30 Respiratory Pattern Normal 12/16/20 07:30 Blood Pressure 125/77 12/16/20 12:46 Blood Pressure Mean 73 12/14/20 12:31 Blood Pressure Position Sitting 12/14/20 08:08 Pulse Oximetry 98 12/16/20 12:46 Oxygen Delivery Method Room Air 12/16/20 12:46 Oxygen Flow Rate 0 12/16/20 12:46 Pain Level 0 12/16/20 12:46 Comment 12/14/20 15:45 Intake & Output 12/15/20 12/16/20 12/16/20 23:59 11:59 23:59 Intake Total 1383.75 / 2221.75 1275 / 1515 240 / 1515 Output Total 1900 / 3800 700 / 700 Balance -516.25 / -1578.25 575 / 815 240 / 815 Weight 63.4 kg Intake: IV 963.75 / 1431.75 915 / 915 Oral 420 / 790 360 / 600 240 / 600 Output: Urine 1900 / 3800 700 / 700 Other: Urine Color Yellow Light Jaja Urine Appearance Clear Clear Urine Odor Normal None Comment voiding independently - measuring device emptied. Stool Size Large Stool Characteristics Liquid Voiding Methods Toilet Toilet Data Completed and Pending Labs on day of discharge: Labs from last 24 hours 12/16/20 12/16/20 13:40 09:45 Sodium 133 L Potassium 3.6 Chloride 99 Carbon Dioxide 26.8 Anion Gap 7.2 BUN 5 L Creatinine 0.5 L Estimated GFR/1.73 m2 >= 60.00 Glucose 155 H Calcium 7.6 L Total Bilirubin 0.5 AST 276 H ALT 469 H Alkaline Phosphatase 313 H Total Protein 6.2 L Albumin 2.6 L Lyme Disease Antibody Cancelled [facility] Medical History No significant past medical history Surgical History No significant past surgical history Social History Smoking/Tobacco Use Status: Never Smoking risk assessment performed?: Yes Alcohol Intake: current Alcohol Intake frequency: 0-2 drinks per day Alcohol type: beer Drug use: Never Substance use type: does not use
[2020-12-16 15:30] VITALS: PULSE 74
== END 2020-12-16 15:39 | disposition home or self-care (01) | DRG 869 ==
LOC: ER 11:41 → MS 12:35
PROVIDERS: Emergency Medicine; Admitting Provider Family Medicine; Emergency Provider Student in an Organized Health Care Education/Training Program; PCP Nurse Practitioner Family; Visit Provider Family Medicine
DX: A69.29 Other conditions associated with Lyme disease (principal); I51.89 Other ill-defined heart diseases; R74.01 Elevation of levels of liver transaminase levels; R53.81 Other malaise; R50.9 Fever, unspecified; R11.2 Nausea with vomiting, unspecified; Z20.822 Contact with and (suspected) exposure to COVID-19; D25.9 Leiomyoma of uterus, unspecified
CPT/HCPCS: 36415; 71275; 74177; 80053; 82550; 83690; 87635; 93005; 96361; 96365; 99285; 76856; 83735; 84484; 85025; 86618; 93010; 93306; 99223; 99232; 99239; J0780; J1644; J2405; J3490

== ENCOUNTER 2021-04-28 15:26 | Outpatient (REF) | payer BC, SELFPAY ==
[2021-04-28 16:01] LABS: Hemoglobin A1C 5.6 % (<5.7)
[2021-04-28 16:15] LABS: ALT 21 U/L (14-59); AST 13 U/L (15-37); Alkaline Phosphatase 68 U/L (46-116); BUN 14 mg/dL (7-18); Bilirubin, Total 0.4 mg/dL (0.2-1.0); CREATININE 0.6 mg/dL (0.55-1.02); Calcium 8.7 mg/dL (8.5-10.1); Calculated LDL 170 mg/dL (<100); Chloride 103 mmol/L (98-107); Cholesterol 262 mg/dL (<200); Glucose 118 mg/dL (74-106); HDL Cholesterol 73 mg/dL (40-60); Sodium 138 mmol/L (136-145); Total Protein 6.9 g/dL (6.4-8.2); Triglyceride 96 mg/dL (<150)
== END 2021-04-28 15:27 | disposition home or self-care (01) ==
LOC: NCHCN 15:26
PROVIDERS: PCP Nurse Practitioner Family; Visit Provider Nurse Practitioner Family
DX: E78.5 Hyperlipidemia, unspecified (principal); J30.9 Allergic rhinitis, unspecified; F32.9 Major depressive disorder, single episode, unspecified; M54.50 Low back pain, unspecified; R73.9 Hyperglycemia, unspecified; E87.1 Hypo-osmolality and hyponatremia
CPT/HCPCS: 80053; 80061; 83036

== ENCOUNTER 2021-10-02 10:27 | Outpatient (REF) | payer BC, SELFPAY ==
--- NOTE | 2021-10-02 09:15 | PAPFT_PTH ---
PATIENT: Aimee Bonilla LOC: [facility]#:[id number] AGE/SX: 61/F ROOM: RE10/02/[address]: Ailyn Buenrostro : 1960 BED: DIS: 10/02/2021 SPEC #: [id number] RECD: 10/02/21 17:48 STATUS: KEELEY RETrip #: [id number] YEN: 10/02/21 09:[address]: Ailyn Buenrostro DEPT: [facility] Cytology RECD BY: Carola Hernandez ENTERED: 10/02/21 17:48 SP TYPE: PAPFT OTHR DR: Esther Ambriz Tissues: 1 - CX/ENDOCX FOR PAP SMEARS Procedures: PAP THIN PREP/UVM Screening HPV DNA PROBE Comments: [id number]
== END 2021-10-02 10:28 | disposition home or self-care (01) ==
LOC: NCHCN 10:27
PROVIDERS: PCP Nurse Practitioner Family; Visit Provider Nurse Practitioner Family
DX: Z00.00 Encounter for general adult medical examination without abnormal findings (principal); Z12.4 Encounter for screening for malignant neoplasm of cervix; Z11.51 Encounter for screening for human papillomavirus (HPV); Z01.419 Encounter for gynecological examination (general) (routine) without abnormal findings
CPT/HCPCS: 88142; 87624

== ENCOUNTER → 2021-10-20 02:25 | Outpatient (CLI) | payer BC, SELFPAY ==
--- NOTE | 2021-10-20 | DI.MAMMO_ITS ---
Exam(s) MAMMO SCREENING EXAM: MAMMO SCREENING CLINICAL HISTORY: SCREENING, Z12.39 TECHNIQUE: Bilateral full field digital CC and MLO mammographic images were obtained with 3D tomosyn thesis and utilizing computer aided detection (CAD). COMPARISON: Available for comparison. FINDINGS: Masses/Architectural Distortion: There is an ovoid density in the outer central left breast on the cr aniocaudad view. Microcalcifications: No suspicious pleomorphic-type are seen. Skin Thickening/Nipple Retraction: None. IMPRESSION: 1. There is an ovoid density in the outer central left breast on the craniocaudad view. 2. This area should be further evaluated with spot compression view. Ultrasound may be indicated at that time. BI-RADS Category 0 - Assessment Incomplete: Need additional imaging evaluation Breast Density - Category B - Scattered areas of fibroglandular density Breast density category C or D implies that the patient has dense breast tissue. Dense breast tissue is very common and is not abnormal but dense breast tissue can make it harder to find cancer on a ma mmogram. Also, dense breast tissue may increase their breast cancer risk. This information about the result of the mammogram report was provided to the patient to raise their awareness. Use this report when you speak with the patient about their risks for breast cancer, which includes their family hist ory. At that time, you may recommend for more screening tests (Ultrasound or MRI) as they might be us eful based on their risk. A negative radiographic report should not delay biopsy if a dominant or clinically suspicious mass is present. Up to ten percent of cancers are not identified on mammography. A negative report may reinforce clinical impression. Adenosis and dense breasts may obscure an underlying neoplasm. False positive reports average 6 to 10%. Patient will receive a letter notifying them of these results.
== END ==
PROVIDERS: PCP Nurse Practitioner Family; Visit Provider Nurse Practitioner Family
DX: Z12.31 Encounter for screening mammogram for malignant neoplasm of breast (principal); R92.8 Other abnormal and inconclusive findings on diagnostic imaging of breast
CPT/HCPCS: 77063; 77067

== ENCOUNTER → 2021-10-30 01:59 | Outpatient (CLI) | payer BC, SELFPAY ==
--- NOTE | 2021-10-30 | DI.US_ITS ---
Exam(s) MG MAMMO SCREEN CALL BACK UNI US BREAST LT COMPLETE EXAM: MG MAMMO SCREEN CALL BACK UNI-LEFT AND COMPLETE LEFT BREAST UTRASOUND CLINICAL HISTORY: F/U ABNL MAMMO, OVOID DENSITY LT BREAST. TECHNIQUE: Unilateral spot mammographic images obtained with 3D tomosynthesisand utilizing computer aided detection (CAD). . Complete LEFT breast Ultrasound was also performed, including all 4 quadrants, the retroareolar regio n, and the ipsilateral axilla. COMPARISON: Prior mammograms were reviewed. This additional imaging was performed due to findings described on the recent screening mammogram of 10/20/2021. FINDINGS: DIAGNOSTIC LEFT BREAST MAMMOGRAM: Additional mammographic views performed todaydo not dissipate the oval well-defined noncalcified nodu le.Proceed with ultrasound. COMPLETE LEFT BREAST ULTRASOUND: Ultrasound performed today reveals no significant solid or cystic findings in all 4 quadrants nor in the retroareolar region. This implies that the finding is most probably benign intramammary lymph no de.. Scanning of the ipsilateral left axilla is negative for significant adenopathy. IMPRESSION: Nodule in left breast is most probably benign lymph node, given its appearance on additional spot com pression spot view performed today plus the fact that it is not seen on ultrasound examination. Appropriate follow-up is repeat left breast mammogram in 6 months. The patient was informed of these findings and recommendations prior to leaving the department today. BI-RADS Category 3 - 6 month - Probably Benign Finding: Recommend follow-up mammography in 6 months Breast Density - Category C - Heterogeneously dense Breast density Category C or D implies that the patient has dense breast tissue. Dense breast tissue can make it harder to find cancer on a mammogram. Dense breast tissue is also associated with an incr eased risk of breast cancer. This information about the result of the mammogram report was provided to the patient to raise their awareness. Use this report when you speak with the patient about their risks for breast cancer, which includes their family history. At that time, you may recommend additional screening tests (Ultrasoun d or MRI) as these tests may add significant information. A negative radiographic report should not delay biopsy if a dominant or clinically suspicious mass is present. Up to ten percent of cancers are not identified on mammography. A negative report may reinforce clinical impression. Adenosis and dense breasts may obscure an underlying neoplasm. False positive reports average 6 to 10%. Patient will receive a letter notifying them of these results.
== END ==
PROVIDERS: PCP Nurse Practitioner Family; Visit Provider Nurse Practitioner Family
DX: Z12.31 Encounter for screening mammogram for malignant neoplasm of breast (principal); R92.8 Other abnormal and inconclusive findings on diagnostic imaging of breast; N60.82 Other benign mammary dysplasias of left breast
CPT/HCPCS: 76642; 77063; 77067

== ENCOUNTER 2022-04-24 00:29 | Outpatient (CLI) | payer BC, SELFPAY ==
--- NOTE | 2022-04-24 | DI.US_ITS ---
Exam(s) MG MAMMO DIAGNOSTIC UNI US BREAST LT LIMITED EXAM: MG MAMMO DIAGNOSTIC UNI CLINICAL HISTORY: DIAGNOSTIC, 6 MO F/U, R92.8. COMPARISON: MG Screening Bilat Mammo from 12/30/2016 MG MG mammo screening from 12/22/2018 MG MG MAMMO SCREENING from 10/20/2021 MG MG MAMMO SCREEN CALL BACK UNI from 10/30/2021 US US BREAST LT COMPLETE from 10/30/2021 US US BREAST LT LIMITED from 04/24/2022 TECHNIQUE: Craniocaudal and mediolateral oblique Full Field Digital Mammography views of the left br east with Computer Aided Diagnosis followed by Tomosynthesis and left breast ultrasound. FINDINGS: Mammography/Tomosynthesis: Masses/Architectural Distortion: No change nodule left lower outer quadrant. Microcalcifications: No suspicious pleomorphic-type are seen. Skin Thickening/Nipple Retraction: None. Left breast US: Echotexture: Normal appearance of the glandular tissue. Shadowing: No suspicious foci. Cyst: None. Solid lesions: None seen. Ductal dilation: None. IMPRESSION: 1. No evidence of malignancy is noted. No change in nodule which has the appearance of an intramammar y lymph node. 2. Unless there is more urgent need, follow-up bilat screening mammography is recommended, in 6 month s. BI-RADS Category 3 - 6 month - Probably Benign Finding: Recommend follow-up mammography in 6 months Breast Density - Category B - Scattered areas of fibroglandular density Breast density category C or D implies that the patient has dense breast tissue. Dense breast tissue is very common and is not abnormal but dense breast tissue can make it harder to find cancer on a ma mmogram. Also, dense breast tissue may increase their breast cancer risk. This information about the result of the mammogram report was provided to the patient to raise their awareness. Use this report when you speak with the patient about their risks for breast cancer, which includes their family hist ory. At that time, you may recommend for more screening tests (Ultrasound or MRI) as they might be us eful based on their risk. A negative radiographic report should not delay biopsy if a dominant or clinically suspicious mass is present. Up to ten percent of cancers are not identified on mammography. A negative report may reinforce clinical impression. Adenosis and dense breasts may obscure an underlying neoplasm. False positive reports average 6 to 10%. Patient will receive a letter notifying them of these results.
== END 2022-04-24 00:49 ==
LOC: DI 00:30
PROVIDERS: PCP Nurse Practitioner Family; Visit Provider Nurse Practitioner Family
DX: R92.8 Other abnormal and inconclusive findings on diagnostic imaging of breast (principal); N63.23 Unspecified lump in the left breast, lower outer quadrant; R59.0 Localized enlarged lymph nodes
CPT/HCPCS: 76642; 77061; 77065; G0279

== ENCOUNTER 2022-10-21 02:00 | Outpatient (CLI) | payer BC, SELFPAY ==
--- NOTE | 2022-10-21 08:20 | DI.MAMMO_ITS ---
Exam(s) MAMMO SCREENING EXAM: MAMMO SCREENING CLINICAL HISTORY: SCREENING, Z12.39 TECHNIQUE: Bilateral full field digital CC and MLO mammographic images were obtained with 3D tomosyn thesis and utilizing computer aided detection (CAD). COMPARISON: Available for comparison. FINDINGS: Masses/Architectural Distortion: The nodular opacity in the outer left breast on the CC view is uncha nged. No areas of architectural distortion are seen. Microcalcifications: No suspicious pleomorphic-type are seen. Skin Thickening/Nipple Retraction: None. IMPRESSION: 1. No significant interval change with no specific features of malignancy noted. 2. Unless there is more urgent need, screening mammography is recommended, as per [employer] [place] [employer] guidelines. BI-RADS Category 2 - Benign Findings Breast Density - Category B - Scattered areas of fibroglandular density Breast density category C or D implies that the patient has dense breast tissue. Dense breast tissue is very common and is not abnormal but dense breast tissue can make it harder to find cancer on a ma mmogram. Also, dense breast tissue may increase their breast cancer risk. This information about the result of the mammogram report was provided to the patient to raise their awareness. Use this report when you speak with the patient about their risks for breast cancer, which includes their family hist ory. At that time, you may recommend for more screening tests (Ultrasound or MRI) as they might be us eful based on their risk. A negative radiographic report should not delay biopsy if a dominant or clinically suspicious mass is present. Up to ten percent of cancers are not identified on mammography. A negative report may reinforce clinical impression. Adenosis and dense breasts may obscure an underlying neoplasm. False positive reports average 6 to 10%. Patient will receive a letter notifying them of these results.
== END 2022-10-21 02:20 ==
LOC: DI 02:01
PROVIDERS: PCP Nurse Practitioner Family; Visit Provider Nurse Practitioner Family
DX: Z12.31 Encounter for screening mammogram for malignant neoplasm of breast (principal)
CPT/HCPCS: 77063; 77067

== ENCOUNTER 2022-11-20 18:01 | Outpatient (REF) | payer BC, SELFPAY ==
[2022-11-20 21:25] LABS: Calculated LDL 147 mg/dL (<100); Cholesterol 233 mg/dL (<200); HDL Cholesterol 71 mg/dL (40-60); Triglyceride 78 mg/dL (<150)
== END 2022-11-20 18:02 | disposition home or self-care (01) ==
LOC: NCHCN 18:01
PROVIDERS: PCP Nurse Practitioner Family; Visit Provider Nurse Practitioner Family
DX: E78.5 Hyperlipidemia, unspecified (principal); I25.2 Old myocardial infarction
CPT/HCPCS: 80061

== ENCOUNTER → 2023-11-01 02:45 | Outpatient (CLI) | payer BC, SELFPAY ==
--- NOTE | 2023-11-01 | DI.MAMMO_ITS ---
Exam(s) MAMMO SCREENING EXAM: MAMMO SCREENING CLINICAL HISTORY: SCREENING MAMMO Z12.31 TECHNIQUE: Mammograms were interpreted according to the usual protocol including computer analysis w [employer] CAD system, tomosynthesis and C-view imaging. COMPARISON: 2014 through 2022 FINDINGS: The breasts are composed of scattered fibroglandular densities, Breast Density category B. No suspicious masses or suspicious microcalcifications are seen. No skin thickening or abnormal axillary lymph nodes are seen. There has been no significant change from prior exams. IMPRESSION: BI-RADS Category 1, Negative mammogram Yearly screening mammography is recommended. Breast Density - Category B, scattered fibroglandular densities. A negative radiographic report should not delay biopsy if a dominant or clinically suspicious mass is present. Up to ten percent of cancers are not identified on mammography. A negative report may reinforce clinical impression. Adenosis and dense breasts may obscure an underlying neoplasm. False positive reports average 6 to 10%. Patient will receive a letter notifying them of these results.
== END ==
PROVIDERS: PCP Nurse Practitioner Family; Visit Provider Nurse Practitioner Family
DX: Z12.31 Encounter for screening mammogram for malignant neoplasm of breast (principal)
CPT/HCPCS: 77063; 77067

== ENCOUNTER 2025-01-22 03:35 | Outpatient (CLI) | payer BC, SELFPAY ==
--- NOTE | 2025-01-22 | DI.MAMMO_ITS ---
Exam(s) MAMMO SCREENING EXAM: MAMMO SCREENING CLINICAL HISTORY: SCREENING MAMMO Z12.31. TECHNIQUE: Bilateral full field digital CC and MLO mammographic images were obtained with 3D tomosynthesis and utilizing computer aided detection (CAD). COMPARISON: Prior mammograms were reviewed. Prior ultrasound examination of March 2022 also reviewed. FINDINGS: There has been no significant change in the appearance and distribution of the fibroglandular tissue. Benign-appearing microcalcifications again noted. There are no new spiculated masses nor malignant appearing microcalcification groups. There is no significant architectural distortion nor skin thickening-retraction. IMPRESSION: No radiographic evidence of malignancy. BI-RADS Category 2 - Benign Findings Breast Density - Category B - There are scattered areas of fibroglandular density. Breast density Category C or D implies that the patient has dense breast tissue. Dense breast tissue can make it harder to find cancer on a mammogram. Dense breast tissue is also associated with an increased risk of breast cancer. This information about the result of the mammogram report was provided to the patient to raise their awareness. Use this report when you speak with the patient about their risks for breast cancer, which includes their family history. At that time, you may recommend additional screening tests (Ultrasound or MRI) as these tests may add significant information. A negative radiographic report should not delay biopsy if a dominant or clinically suspicious mass is present. Up to ten percent of cancers are not identified on mammography. A negative report may reinforce clinical impression. Adenosis and dense breasts may obscure an underlying neoplasm. False positive reports average 6 to 10%. Patient will receive a letter notifying them of these results.
== END 2025-01-22 03:55 ==
PROVIDERS: PCP Nurse Practitioner Family; Visit Provider Nurse Practitioner Family
DX: Z12.31 Encounter for screening mammogram for malignant neoplasm of breast (principal); R92.323 Mammographic fibroglandular density, bilateral breasts
CPT/HCPCS: 77063; 77067